=== PATIENT | female | born 1965 | race Caucasian/White ===

== ENCOUNTER → 2018-08-13 | Outpatient (CLI) | payer OTHER ==
[~2018-08-13] MED LIST: OMNIPAQUE 350 MG/ML, 100ML BOTTLE ONE
== END | disposition home or self-care (01) ==
LOC: RAD 11:24
PROVIDERS: ATTEND Ophthalmology
DX: H53.40 Unspecified visual field defects (principal)
CPT/HCPCS: 70470; Q9967

== ENCOUNTER 2018-09-21 08:28 | Inpatient (IN) | payer OTHER ==
[~2018-09-21] VITALS: Ht 165.1 cm; Wt 67.4 kg
[~2018-09-21 08:28] MED LIST changes: +CEFAZOLIN 1,000 MG ONE; +EPINEPHRINE 1 MG/ML, 1ML ONE; +FENTANYL PF 100 MCG/2ML ONE; +KETOROLAC 60 MG/2 ML ONE; +LIDOCAINE-MPF 2% ,5ML ONE; +LISI-167 PO; +MIDAZOLAM 1 MG/ML, 2ML ONE; -OMNIPAQUE 350 MG/ML, 100ML BOTTLE ONE; +ROPIvacaine/PF 0.5%, 20 ML ONE; +ROPIvacaine/PF 0.5%, 30 ML ONE; +SODIUM CHLORIDE 0.9% 100 ML ONE; +TRANEXAMIC ACID 100 MG/ML, 10ML ONE
[2018-09-21 08:50] VITALS: BP 131/84
[2018-09-21] MEDS ORDERED: LORazepam 2 MG/ML, 1ML IVPush PRN (09:00)
[2018-09-21] MEDS ORDERED: METOPROLOL 1 MG/ML, 5ML IV PRN (09:00)
[2018-09-21] MEDS ORDERED: MIDAZOLAM 1 MG/ML, 2ML IV PRN (09:00)
[2018-09-21] MEDS ORDERED: OXYcodone 5 MG/5 ML ORAL.SOL UDC PO PRN (09:00)
[2018-09-21] MEDS ORDERED: SCOPOLAMINE PATCH, 1.5MG PATCH.TD72 TD PRN ×2 (09:00→09:30)
[2018-09-21] MEDS ORDERED: MORPHINE SULFATE 4 MG/ML, 1ML IVPush PRN (09:00)
[2018-09-21] MEDS ORDERED: MEPERIDINE/PF 25MG/0.5ML IVPush PRN (09:00)
[2018-09-21] MEDS ORDERED: LABETALOL 5MG/ML, 20ML IV PRN (09:00)
[2018-09-21] MEDS ORDERED: METOCLOPRAMIDE 5 MG/ML, 2ML IV PRN (09:00)
[2018-09-21] MEDS ORDERED: HYDROmorphone 1 MG/ML, 1ML IV PRN (09:00)
[2018-09-21] MEDS ORDERED: EPHEDRINE 50 MG/ML, 1ML IVPush PRN (09:00)
[2018-09-21] MEDS ORDERED: hydrALAzine 20 MG/ML, 1ML IV PRN (09:00)
[2018-09-21] MEDS ORDERED: DIAZEPAM 5 MG/ML, 2ML IVPush PRN (09:00)
[2018-09-21] MEDS ORDERED: ALBUTEROL/IPRATROPIUM 2.5MG/0.5MG, 3 ML NPPB PRN (09:00)
[2018-09-21] MEDS ORDERED: HYDR-3653 PO (09:04)
[2018-09-21] MEDS ORDERED: AMOX-291 PO (09:04)
[2018-09-21] MEDS ORDERED: BACI28.43 PO (09:04)
[2018-09-21] MEDS ORDERED: LACTATED RINGERS 1,000 ML IV SCH (09:04)
[2018-09-21] MEDS ORDERED: VANCOMYCIN 1,000 MG ONE (09:07)
[2018-09-21] MEDS ORDERED: ACETAMINOPHEN 500 MG TABLET ONE (09:12)
[2018-09-21] MEDS ORDERED: GABAPENTIN 300 MG CAPSULE ONE (09:12)
[2018-09-21] MEDS ORDERED: ROCURONIUM 10MG/ML,5ML ONE (09:17)
[2018-09-21] MEDS ORDERED: SUCCINYLCHOLINE 20 MG/ML, 10ML ONE (09:17)
[2018-09-21] MEDS ORDERED: PROPOFOL 10 MG/ML, 20ML ONE (09:17)
[2018-09-21] MEDS ORDERED: GABAPENTIN 300 MG CAPSULE PO ONE (09:30)
[2018-09-21] MEDS ORDERED: SENNA/DOCUSATE TABLET PO PRN (09:30)
[2018-09-21] MEDS ORDERED: NS + 20MEQ KCL 1,000 ML IV SCH (09:30)
[2018-09-21] MEDS ORDERED: ACETAMINOPHEN 650 MG/20.3 ML UDC PO PRN (09:30)
[2018-09-21] MEDS ORDERED: MAGNESIUM HYDROXIDE 8%, 30ML UDC PO PRN (09:30)
[2018-09-21] MEDS ORDERED: DIPHENHYDRAMINE 50 MG CAPSULE PO PRN (09:30)
[2018-09-21] MEDS ORDERED: ZOLPIDEM 5MG TABLET PO PRN (09:30)
[2018-09-21] MEDS ORDERED: CEFAZOLIN 2,000 MG in SODIUM CHLORIDE 0.9% 50 ML IVPB SCH (09:30)
[2018-09-21] MEDS ORDERED: OXYcodone IR 5MG TABLET PO PRN (09:30)
[2018-09-21] MEDS ORDERED: ONDANSETRON 2MG/ML, 2ML IV PRN (09:30)
[2018-09-21] MEDS ORDERED: ONDANSETRON 4 MG TABLET PO PRN (09:30)
[2018-09-21] MEDS ORDERED: BISACODYL 10 MG SUPP PR PRN (09:30)
[2018-09-21] MEDS ORDERED: ACETAMINOPHEN 500 MG TABLET PO ONE (09:30)
[2018-09-21] MEDS ORDERED: HYDROcodone/APAP 5/325 TABLET PO PRN (09:30)
[2018-09-21] MEDS ORDERED: ONDANSETRON 2MG/ML, 2ML ONE (10:30)
[2018-09-21] MEDS ORDERED: FENTANYL PF 100 MCG/2ML ONE (10:58)
[2018-09-21] MEDS ORDERED: OXYcodone 5 MG/5 ML ORAL.SOL UDC ONE (10:58)
[2018-09-21] MEDS: FENTANYL PF 100 MCG/2ML IV PRN ×2 (11:02→11:07)
[2018-09-21] MEDS ORDERED: MEPERIDINE/PF 50 MG/ML ONE (11:05)
[2018-09-21 12:10] VITALS: BP 113/47
[2018-09-21 16:30] VITALS: BP 120/70
[2018-09-21] MEDS ORDERED: OXYC5TAB2 PO (16:42)
[2018-09-21] MEDS ORDERED: TRAM50TA2 PO (16:43)
[2018-09-21] MEDS ORDERED: MELO7.5T31 PO (16:44)
[2018-09-21] MEDS ORDERED: ASPIRIN 81 MG TABLET EC PO SCH (18:00)
[2018-09-21] MEDS ORDERED: DOCUSATE 100 MG CAPSULE PO SCH (21:00)
[2018-09-22] MEDS ORDERED: DEXAMETHASONE 4 MG/ML, 1ML IVPush SCH (06:00)
[2018-09-22] MEDS ORDERED: LISINOPRIL 10 MG TABLET PO SCH (09:00)
== END 2018-09-21 17:41 | disposition home or self-care (01) | DRG 470 ==
LOC: ORIP 08:28 → 4NOR 12:02
PROVIDERS: ADMIT Orthopaedic Surgery; ATTEND Orthopaedic Surgery
PROC: 0SR903A Replacement of Right Hip Joint with Ceramic Synthetic Substitute, Uncemented, Open Approach (ICD-10-PCS; principal; 2018-09-21 10:30)
DX: M16.11 Unilateral primary osteoarthritis, right hip (principal); I10 Essential (primary) hypertension; Z88.1 Allergy status to other antibiotic agents; Z85.528 Personal history of other malignant neoplasm of kidney; Z90.5 Acquired absence of kidney
CPT/HCPCS: 76000; C1713; G0378; J0171; J0690; J1885; J2175; J2250; J2405; J2704; J2795; J3010; J3360; J3370; J3480; J3490; C1776; J0330; J7120

== ENCOUNTER → 2020-10-26 | Outpatient (CLI) | payer OTHER ==
[~2020-10-26] MED LIST changes: +ALBU18HF INH; +AMOX-291 PO; +BACI28.43 PO; +BUTA-177 PO; -CEFAZOLIN 1,000 MG ONE; +CELE200C PO; -EPINEPHRINE 1 MG/ML, 1ML ONE; -FENTANYL PF 100 MCG/2ML ONE; +GABA600T7 PO; +HYDR-3240 PO; +HYDR-3653 PO; -KETOROLAC 60 MG/2 ML ONE; -LIDOCAINE-MPF 2% ,5ML ONE; +MELO7.5T31 PO; -MIDAZOLAM 1 MG/ML, 2ML ONE; +OXYC5CAP2 PO; +OXYC5TAB2 PO; +PANT40TA3 PO; -ROPIvacaine/PF 0.5%, 20 ML ONE; -ROPIvacaine/PF 0.5%, 30 ML ONE; -SODIUM CHLORIDE 0.9% 100 ML ONE; +TRAM50TA2 PO; -TRANEXAMIC ACID 100 MG/ML, 10ML ONE; +TROS60CA3 PO
[2020-10-26 14:50] LABS: BASOPHILS % (AUTO) 0 % (0-1); EOSINOPHILS % (AUTO) 1 % (1-7); LYMPHOCYTES % (AUTO) 37 % (22-44); MEAN CORPUSCULAR HEMOGLOBIN 31.2 pg (27.0-34.8); MEAN CORPUSCULAR HGB CONC 33.7 g/dL (32.4-35.8); MEAN PLATELET VOLUME 9.2 fL (7.4-10.4); MONOCYTES % (AUTO) 6 % (2-9); NEUTROPHILS % (AUTO) 56 % (42-75); PLATELET COUNT 219 x10^3/uL (130-400); RED BLOOD COUNT 4.68 x10^6/uL (3.82-5.3); RED CELL DISTRIBUTION WIDTH 13.8 % (9.6-15.2)
[2020-10-26 14:52] LABS: MD NO
[2020-10-26 15:04] LABS: ALANINE AMINOTRANSFERASE 37 U/L (12-78); ALBUMIN 4.1 g/dL (3.4-5.0); ANION GAP 6 mmol/L (5-15); CALCIUM 9.2 mg/dL (8.5-10.1); CHLORIDE 109 mmol/L (98-107); CREATININE 1.17 mg/dL (0.55-1.02)
[2020-10-26 15:06] LABS: ALKALINE PHOSPHATASE 99 U/L (45-117); BILIRUBIN,TOTAL 0.4 mg/dL (0.2-1.0); TOTAL PROTEIN 7.7 g/dL (6.4-8.2)
== END | disposition home or self-care (01) ==
LOC: STAR 08:00
PROVIDERS: ATTEND Surgery
DX: Z01.818 Encounter for other preprocedural examination (principal); Z20.828 Contact with and (suspected) exposure to other viral communicable diseases
CPT/HCPCS: 80053; 85025; 87635; 93005

== ENCOUNTER 2020-10-30 09:31 | Inpatient (IN) | payer OTHER ==
[~2020-10-30] VITALS: Ht 165.1 cm; Wt 65.6 kg
[~2020-10-30 09:31] MED LIST changes: +BUPIVACAINE/PF-EPI 0.5% 1:200K ONE; -CELE200C PO; +EPHEDRINE 50 MG/ML, 1ML IVPush PRN; -GABA600T7 PO; +HYDROmorphone 1 MG/ML, 1ML INJ IVPush PRN; +INDOCYANINE GREEN 25 MG VIAL ONE; +LABETALOL 5MG/ML, 20ML IV PRN; -OXYC5CAP2 PO; +PROMETHAZINE 25 MG/ML, 1ML IVPush PRN; +hydrALAzine 20 MG/ML, 1ML IV PRN
[2020-10-30] MEDS ORDERED: CHLORHEXIDINE 15 ML UDC ONE (10:51)
[2020-10-30 10:52] VITALS: BP 106/74
[2020-10-30] MEDS ORDERED: CHLORHEXIDINE 15 ML UDC MM ONE (11:00)
[2020-10-30] MEDS ORDERED: LACTATED RINGERS 1,000 ML IV SCH (11:00)
[2020-10-30] MEDS ORDERED: ACETAMINOPHEN 500 MG TABLET PO ONE (11:00)
[2020-10-30] MEDS ORDERED: FENTANYL PF 250 MCG/5ML ONE (11:35)
[2020-10-30] MEDS ORDERED: MIDAZOLAM 1 MG/ML, 2ML ONE (11:35)
[2020-10-30] MEDS ORDERED: METRONIDAZOLE PMX 500MG/100ML 100 ML ONE (13:56)
[2020-10-30] MEDS ORDERED: DEXAMETHASONE 4 MG/ML, 5ML ONE (14:07)
[2020-10-30] MEDS ORDERED: KETOROLAC 30 MG/1 ML ONE (14:07)
[2020-10-30] MEDS ORDERED: LIDOCAINE-MPF 2% ,5ML ONE (14:07)
[2020-10-30] MEDS ORDERED: ONDANSETRON 2MG/ML, 2ML ONE (14:07)
[2020-10-30] MEDS ORDERED: PROPOFOL 10 MG/ML, 20ML ONE (14:07)
[2020-10-30] MEDS ORDERED: SUGAMMADEX 200 MG/2 ML IVPush ONE (14:07)
[2020-10-30] MEDS ORDERED: CEFAZOLIN 1,000 MG ONE (14:07)
[2020-10-30] MEDS ORDERED: SUCCINYLCHOLINE 20 MG/ML, 10ML ONE (14:07)
[2020-10-30] MEDS ORDERED: GLYCOPYRROLATE 0.2MG/1ML, 5ML ONE (14:10)
[2020-10-30] MEDS ORDERED: EPHEDRINE 50 MG/ML, 1ML ONE ×2 (15:48)
[2020-10-30] MEDS ORDERED: PROMETHAZINE 25 MG/ML, 1ML ONE (16:04)
[2020-10-30] MEDS ORDERED: FENTANYL PF 100 MCG/2ML ONE (16:04)
[2020-10-30] MEDS ORDERED: OXYcodone 5 MG/5 ML ORAL.SOL UDC ONE (16:05)
[2020-10-30] MEDS: FENTANYL PF 100 MCG/2ML IV PRN ×2 (16:20→16:42)
[2020-10-30] MEDS: OXYcodone 5 MG/5 ML ORAL.SOL UDC PO PRN ×2 (16:32→17:00)
[2020-10-30] MEDS ORDERED: ALBUTEROL HFA 90 MCG/SPRAY INH PRN (19:00)
[2020-10-30] MEDS ORDERED: NICOTINE 21 MG/24 HR PATCH.TD24 TD SCH (19:00)
[2020-10-30] MEDS ORDERED: DIPHENHYDRAMINE 50 MG/ML, 1ML IVPush PRN (19:00)
[2020-10-30] MEDS ORDERED: ONDANSETRON 2MG/ML, 2ML IV PRN (19:00)
[2020-10-30] MEDS ORDERED: OXYcodone IR 5MG TABLET PO PRN (19:00)
[2020-10-30] MEDS ORDERED: DIPHENHYDRAMINE 25 MG CAPSULE PO PRN (19:00)
[2020-10-30] MEDS: GABAPENTIN 300 MG CAPSULE PO SCH (19:36)
[2020-10-30] MEDS: D5%-0.45NACL+KCL 20MEQ 1,000 ML IV SCH (19:36)
[2020-10-30] MEDS: ACETAMINOPHEN 500 MG TABLET PO SCH (19:37)
[2020-10-30 20:51] VITALS: BP 125/84
[2020-10-31 00:11] VITALS: BP 109/72
[2020-10-31] MEDS: ACETAMINOPHEN 500 MG TABLET PO SCH ×3 (01:09→12:04)
[2020-10-31 03:38] LABS: ALBUMIN 3.8 g/dL (3.4-5.0); ANION GAP 7 mmol/L (5-15); C-REACTIVE PROTEIN, QUANT 0.77 mg/dL (0.02-0.49); CALCIUM 9.5 mg/dL (8.5-10.1); CHLORIDE 103 mmol/L (98-107); CREATININE 1.56 mg/dL (0.55-1.02)
[2020-10-31 04:19] LABS: BASOPHILS % (AUTO) 0 % (0-1); EOSINOPHILS % (AUTO) 0 % (1-7); LYMPHOCYTES % (AUTO) 7 % (22-44); MEAN CORPUSCULAR HEMOGLOBIN 30.8 pg (27.0-34.8); MEAN CORPUSCULAR HGB CONC 33.4 g/dL (32.4-35.8); MEAN PLATELET VOLUME 9.5 fL (7.4-10.4); MONOCYTES % (AUTO) 2 % (2-9); NEUTROPHILS % (AUTO) 91 % (42-75); PLATELET COUNT 209 x10^3/uL (130-400); RED BLOOD COUNT 4.44 x10^6/uL (3.82-5.3); RED CELL DISTRIBUTION WIDTH 13.8 % (9.6-15.2)
[2020-10-31 04:20] LABS: MD NO
[2020-10-31 05:25] VITALS: BP 111/71
[2020-10-31] MEDS ORDERED: PANTOPRAZOLE 40MG TABLET PO SCH (06:00)
[2020-10-31 06:29] VITALS: BP 121/76
[2020-10-31] MEDS ORDERED: TROSPIUM 60 MG PO SCH (07:00)
[2020-10-31] MEDS: GABAPENTIN 300 MG CAPSULE PO SCH (08:42)
[2020-10-31] MEDS: D5%-0.45NACL+KCL 20MEQ 1,000 ML IV SCH (08:44)
[2020-10-31] MEDS ORDERED: ENOXAPARIN 40 MG/0.4 ML SQ SCH (09:00)
[2020-10-31] MEDS ORDERED: LISINOPRIL 10 MG TABLET PO SCH (09:00)
[2020-10-31 13:03] VITALS: BP 117/75
[2020-10-31] MEDS ORDERED: OXYC5CAP2 PO (15:08)
[2020-10-31] MEDS ORDERED: CELE200C PO (15:09)
[2020-10-31] MEDS ORDERED: GABA600T7 PO (15:10)
== END 2020-10-31 15:33 | disposition home or self-care (01) | DRG 331 ==
LOC: ORIP 10:22 → 4NE 18:06
PROVIDERS: ADMIT Surgery; ATTEND Surgery
PROC: 8E0W4CZ Robotic Assisted Procedure of Trunk Region, Percutaneous Endoscopic Approach (ICD-10-PCS; 2020-10-30)
PROC: 0DTF4ZZ Resection of Right Large Intestine, Percutaneous Endoscopic Approach (ICD-10-PCS; principal; 2020-10-30 12:30)
DX: D12.0 Benign neoplasm of cecum (principal); R79.89 Other specified abnormal findings of blood chemistry; Z88.1 Allergy status to other antibiotic agents; Z88.8 Allergy status to other drugs, medicaments and biological substances; Z91.018 Allergy to other foods
CPT/HCPCS: 36415; J3490; 80048; 82040; 85025; 86140; 86850; 86900; 88309; G0378; J0690; J1100; J1650; J1885; J2250; J2405; J2704; J3010; J0330; J3480; J7120